=== PATIENT | female | born 1940 | race Caucasian/White ===

== ENCOUNTER 2016-09-09 20:33 | Observation (INO) | payer MEDICARE, OTHER ==
[2016-09-09] MEDS ORDERED: ZYRTEC10 M7 PO (21:02)
[2016-09-09] MEDS ORDERED: PRINIVIL20 M1 PO (21:03)
[2016-09-09] MEDS ORDERED: PEPCID20 M1 PO (21:04)
[2016-09-09] MEDS ORDERED: OMEPRAZOLE20 M4 PO (21:04)
[2016-09-09] MEDS ORDERED: MAXZIDE 75 MG-501 EA PO (21:04)
[2016-09-09] MEDS ORDERED: CENTRUM SILVER1 EAC3 PO (21:05)
[2016-09-09] MEDS ORDERED: GLUCOSAMINE CH PO (21:05)
[2016-09-09] MEDS ORDERED: VITAMIN C500 M2 PO (21:06)
[2016-09-09] MEDS ORDERED: VITAMIN D-32000 UNI3 PO (21:06)
[2016-09-10 12:35] LABS: BASO % 0.3 % (0-2); EOSINOPHIL ABSOLUTE COUNT 0.1 tho/cmm (0.0-0.7); HCT-HEMATOCRIT 37.9 % (34.0-49.0); HGB-HEMOGLOBIN 13.2 gm/dl (12.0-15.5); IMMATURE GRANULOCYTES ABSOLUTE 0.01 tho/cmm (0-0.03); IMMATURE GRANULOCYTES PERCENT 0.1 % (0-0.3); LYMPH % 11.7 % (20-45); LYMPH ABSOLUTE COUNT 0.8 tho/cmm (0.8-4.5); MCH (MEAN CORPUSCULAR HGB) 31.4 pg (28.0-32.0); MCHC MEAN CORPUSCULAR HGB CONC 34.8 % (32.0-36.0); MCV (MEAN CELL VOLUME) 90.2 fl (82.0-96.0); MONO % 11.3 % (0-12); MONOCYTE ABSOLUTE COUNT 0.8 tho/cmm (0.0-1.2); NEUTROPHIL ABSOLUTE COUNT 5.4 tho/cmm (1.6-8.0); NEUTROPHIL-AUTOMATED 5.4 tho/cmm (1.6-8.0); NEUTROPHILS % 75.6 % (40-80); PLATELET COUNT 192 tho/cmm (150-450); RED CELL DISTRIBUTION WIDTH 12.5 % (12.4-16.4); WHITE BLOOD COUNT 7.2 tho/cmm (4.0-10.0)
[2016-09-10 12:51] LABS: ALB/GLOB RATIO 1.2 (0.8-2.0); ALBUMIN 3.9 g/dl (3.5-5.0); ALKALINE PHOSPHATASE 100 U/L (33-138); ALT/SGPT 24 U/L (12-78); ANION GAP 10 mmol/L (0-20); AST/SGOT 20 U/L (10-40); BILIRUBIN,TOTAL 0.9 mg/dl (0-1.5); BLOOD UREA NITROGEN 17 mg/dl (6-24); CARBON DIOXIDE-VENOUS 31 mmol/L (22-32); CHLORIDE 102 mmol/l (96-110); CREATININE 0.93 mg/dl (0.50-1.10); GLUCOSE 140 mg/dL (70-110); POTASSIUM 3.6 mmol/L (3.7-5.1); SODIUM 139 mmol/L (135-145); eGFR VALUE FOR BLACK 68 mL/Min
[2016-09-10 13:53] LABS: URINE BILIRUBIN SMALL (NEG); URINE BLOOD MODERATE (NEG); URINE GLUCOSE (UA) NEGATIVE (NEG); URINE KETONE SMALL (NEG); URINE LEUKOCYTE ESTERASE POSITIVE (NEG); URINE NITRITE NEGATIVE (NEG); URINE PROTEIN MODERATE (NEG)
[2016-09-10 13:56] LABS: URINE APPEARANCE CLEAR; URINE COLOR PALE YELLOW
[2016-09-10 14:08] LABS: URINE WBC 0-1 /[HPF] (0-5)
[2016-09-10 14:09] LABS: URINE EPITHELIAL CELLS 0 /[HPF] (0-10)
[2016-09-11] MEDS ORDERED: ULTRAM50 M1 PO ×2 (12:11→12:12)
[2016-09-11] MEDS ORDERED: TYLENOL325 M2 PO (12:13)
[2016-09-11] MEDS ORDERED: TUMS200 MG PO (12:14)
[2016-09-11] MEDS ORDERED: MAALOX MAXIMUM355 M1 PO (12:17)
[2016-09-11] MEDS ORDERED: COLACE100 M1 PO (12:18)
[2016-09-11] MEDS ORDERED: IBUPROFEN800 M1 PO (12:20)
[2016-09-11] MEDS ORDERED: GAVISCON ES TA1 EACH PO (12:26)
== END 2016-09-11 13:21 ==
LOC: EDMED 20:33 → EMR2 23:50 → 5EB 09-10 01:03
PROVIDERS: ADMIT Family Medicine
DX: S32.592A Other specified fracture of left pubis, initial encounter for closed fracture (principal); I10 Essential (primary) hypertension; E78.00 Pure hypercholesterolemia, unspecified; M19.90 Unspecified osteoarthritis, unspecified site; E55.9 Vitamin D deficiency, unspecified; J30.9 Allergic rhinitis, unspecified; K21.9 Gastro-esophageal reflux disease without esophagitis; R10.13 Epigastric pain; M85.80 Other specified disorders of bone density and structure, unspecified site; Z79.899 Other long term (current) drug therapy; Z88.8 Allergy status to other drugs, medicaments and biological substances; Z98.890 Other specified postprocedural states; W01.0XXA Fall on same level from slipping, tripping and stumbling without subsequent striking against object, initial encounter
CPT/HCPCS: G0378; G8978-GP-CI; G8979-GP-CI; G8980-GP-CI; G8987-GO-CJ; G8988-GO-CH; G8989-GO-CJ; J1650; J2405